=== PATIENT | female | born 1985 | race Caucasian/White ===

== ENCOUNTER 2022-07-12 09:19 | Emergency (ER) | payer OTHER ==
[~2022-07-12] VITALS: Ht 167.6 cm; Wt 86.2 kg
[~2022-07-12 09:19] MED LIST: BCP; METO25TA14 PO
[2022-07-12 09:35] VITALS: BP 186/82
--- NOTE | 2022-07-12 10:37 | NUR ---
37 y/o female bib self with c/o cough, sore throat and lump to right side of neck x 1 week. Patient has taken Claritin and Mucinex with minimal relief. Patient is noted with lump on right side of neck. Patient had a virtual Urgent Care visit and was informed that she has a viral infection and cough is lingering from COVID infection x 2 months ago. Medical History: Non-Hodgkins Lymphoma, DM, Pacemaker NKDA
--- NOTE | 2022-07-12 11:45 | NUR ---
DR. ALDANA EVALUATING PATIENT AT BEDSIDE.
[2022-07-12 13:00] VITALS: BP 129/71
--- NOTE | 2022-07-12 13:00 | NUR ---
Patient discharged with v/s stable. Written and verbal after care instructions given. Patient alert, oriented and verbalized understanding of instructions. Ambulatory with to car. All questions addressed prior to discharge. ID band removed. Patient advised to follow up with PMD. Opportunity to ask questions provided and answered.
--- NOTE | 2022-07-12 14:11 | NUR ---
The patient's care was reviewed and supervised by ED Agency Nurse 8, RN, RN.
== END 2022-07-12 13:00 | disposition home or self-care (01) ==
LOC: MED 09:19
DX: B34.9 Viral infection, unspecified (principal); R59.9 Enlarged lymph nodes, unspecified; I10 Essential (primary) hypertension; Z79.899 Other long term (current) drug therapy; Z95.0 Presence of cardiac pacemaker; Z85.72 Personal history of non-Hodgkin lymphomas
CPT/HCPCS: 71045; 99283

== ENCOUNTER 2023-01-07 11:58 | Emergency (ER) | payer OTHER ==
[~2023-01-07] VITALS: Ht 170.2 cm; Wt 126.6 kg
[2023-01-07 13:10] VITALS: BP 131/83
[2023-01-07 13:39] LABS: BASOPHILS # (AUTO) 0.1 K/uL (0.00-0.22); BASOPHILS % (AUTO) 1.1 % (0.0-2.0); EOSINOPHILS # (AUTO) 0.2 K/uL (0-0.4); EOSINOPHILS % (AUTO) 3.4 % (0.0-4.0); HEMATOCRIT 35.8 % (36-48); LYMPHOCYTES # (AUTO) 1.5 K/uL (2.5-16.5); LYMPHOCYTES % (AUTO) 25.8 % (20.5-51.1); MEAN CORPUSCULAR HEMOGLOBIN 29 pg (27-31); MEAN CORPUSCULAR HGB CONC 34 g/dL (33-37); MEAN CORPUSCULAR VOLUME 85.6 fL (80-94); MONOCYTES # (AUTO) 0.4 K/uL (0.8-1.0); MONOCYTES % (AUTO) 7.6 % (1.7-9.3); NEUTROPHILS # (AUTO) 3.7 K/uL (1.8-7.7); NEUTROPHILS % (AUTO) 62.1 % (42.2-75.2); PLATELET COUNT (AUTO) 227 K/uL (140-450); RED BLOOD CELL COUNT(AUTO) 4.19 MIL/uL (4.20-5.40); RED CELL DISTRIBUTION WIDTH 14.9 % (11.6-13.7); WHITE BLOOD COUNT (AUTO) 5.9 K/uL (4.8-10.8)
--- NOTE | 2023-01-07 13:47 | NUR ---
37 yo/f presents to ED w c/o pain to L leg/ groin area radiating down x1 month but now L leg has begun swelling. pt denies pain at this time and reports only certain movements cause it like lifting leg or turning outwards. denies fevers, chills, n/v/d, sob. pmh: non-hodgkins lymphoma, pacemaker for sick sinus syndrome, dm, high chol allergies: denies
--- NOTE | 2023-01-07 13:50 | NUR ---
US at bedside.
[2023-01-07 14:25] LABS: ALBUMIN 3.4 g/dL (3.4-5.0); ANION GAP 10.1 (8-16); CARBON DIOXIDE 28.2 mmol/L (21-32); CREATININE 0.8 mg/dL (0.6-1.3); POTASSIUM 4.3 mmol/L (3.5-5.1); TOTAL BILIRUBIN 0.3 mg/dL (0.0-1.0)
[2023-01-07 14:52] LABS: APPEARANCE,URINE SL CLOUDY (CLEAR); BILIRUBIN,URINE NEGATIVE (NEGATIVE); BLOOD, URINE NEGATIVE (NEGATIVE); COLOR,URINE ORANGE (YELLOW); LEUKOCYTE ESTERASE ,URINE NEGATIVE (NEGATIVE); NITRITE, URINE NEGATIVE (NEGATIVE); UGLUCOSE NEGATIVE (NEGATIVE)
[2023-01-07 15:23] VITALS: BP 111/60
--- NOTE | 2023-01-07 15:26 | NUR ---
aci given rx metop explained questions steady gait home
== END 2023-01-07 14:20 | disposition home or self-care (01) ==
LOC: MED 11:58
DX: I87.2 Venous insufficiency (chronic) (peripheral) (principal); I25.10 Atherosclerotic heart disease of native coronary artery without angina pectoris; Z79.899 Other long term (current) drug therapy
CPT/HCPCS: 36415; 71045; 80053; 81003; 83605; 85025; 85379; 87040; 87086; 93005; 93970; 99285; Q0092